=== PATIENT | female | born 1945 | race Caucasian/White ===

== ENCOUNTER 2018-05-31 00:33 | Emergency (ER) | payer OTHER ==
[~2018-05-31] VITALS: Ht 165.1 cm; Wt 75.8 kg
[~2018-05-31 00:33] MED LIST: ALBUTEROL INHAL17 GM IH; ASPIRIN PO; ASPIRIN81 M2 PO; CHLORTHALIDONE25 MG PO; GLIPIZIDE ER2.5 MG PO; JANUMET 50-1,01 EACH PO; KAZANO 12.5-501 EACH PO; KLOR-CON 10 ER10 MEQ PO; LANOXIN 0.250.25 M1 PO; ONDANSETRON HCL4 M2 PO; PEPCID AC20 M1 PO; PRIMADONE; PRIMIDONE50 MG PO; TRAMADOL 50 MG50 MG PO; ZOLOFT PO; ZOLOFT25 MG PO; ZYRTEC10 MG PO
[2018-05-31] MEDS ORDERED: SINEMET 10-1001 EAC1 PO (00:47)
[2018-05-31 01:47] VITALS: BP 152/65
== END 2018-05-31 02:02 | disposition home or self-care (01) ==
LOC: ER 00:33
DX: S09.90XA Unspecified injury of head, initial encounter (principal); J45.909 Unspecified asthma, uncomplicated; E11.9 Type 2 diabetes mellitus without complications; Z85.828 Personal history of other malignant neoplasm of skin; W22.8XXA Striking against or struck by other objects, initial encounter; Y93.89 Activity, other specified; Y92.89 Other specified places as the place of occurrence of the external cause; Y99.8 Other external cause status

== ENCOUNTER → 2018-11-02 | Outpatient (CLI) | payer OTHER ==
[~2018-11-02] MED LIST changes: +SINEMET 10-1001 EAC1 PO
== END ==
LOC: MRI 13:56
DX: M47.813 Spondylosis without myelopathy or radiculopathy, cervicothoracic region (principal); I67.82 Cerebral ischemia; M41.84 Other forms of scoliosis, thoracic region; G31.9 Degenerative disease of nervous system, unspecified; M51.24 Other intervertebral disc displacement, thoracic region; R26.9 Unspecified abnormalities of gait and mobility; W19.XXXA Unspecified fall, initial encounter; Y93.89 Activity, other specified; Y92.89 Other specified places as the place of occurrence of the external cause; Y99.8 Other external cause status

== ENCOUNTER 2019-07-12 21:53 | Emergency (ER) | payer OTHER ==
[~2019-07-12] VITALS: Ht 165.1 cm; Wt 74.4 kg
[2019-07-13] MEDS ORDERED: NORCO 5-325 TA1 EAC1 PO (02:40)
[2019-07-13 02:56] VITALS: BP 133/62
--- NOTE | 2019-07-13 15:12 | EKG ---
[address] [address] ELECTROCARDIOGRAM REPORT Name: JUAN CRUZ Room #: DEP [facility]#: [id number] Admission: 07/12/19 Attend Phys: Discharge: 07/13/19 Date of : 45 Report #: [id number] THIS REPORT FOR: //name// [facility] ED Test Date: 2019-07-12 Test Time: 22:06:38 Pat Name: JUAN CRUZ Department: Room: Gender: F [employer] Operator: QIANA : 1945 Requested By: Janeth Bhandari Order Number: [id number] MD: Micah Wharton Measurements Intervals [place] Rate: 86 P: 63 IN: 173 QRS: 17 QRSD: 85 T: 47 QT: 376 QTc: 450 Interpretive Statements Sinus rhythm Probable left atrial enlargement Compared to ECG 05/03/2016 15:29:48 Ventricular premature complex(es) no longer present Electronically Signed On 07-13-2019 15:11:45 CDT by Micah Wharton [email or web address] <ELECTRONICALLY SIGNED> By: Micah Wharton MD 07/13/19 1511 05 05 Micah Wharton MD /DORCAS
== END 2019-07-13 03:00 | disposition home or self-care (01) ==
LOC: ER 21:53
DX: S16.1XXA Strain of muscle, fascia and tendon at neck level, initial encounter (principal); S20.212A Contusion of left front wall of thorax, initial encounter; E11.9 Type 2 diabetes mellitus without complications; M43.26 Fusion of spine, lumbar region; Z98.890 Other specified postprocedural states; Z87.442 Personal history of urinary calculi; Z85.828 Personal history of other malignant neoplasm of skin; W18.39XA Other fall on same level, initial encounter; Y92.89 Other specified places as the place of occurrence of the external cause; Y93.89 Activity, other specified; Y99.0 Civilian activity done for income or pay

== ENCOUNTER → 2019-08-02 | Outpatient (CLI) | payer OTHER ==
[~2019-08-02] MED LIST changes: +NORCO 5-325 TA1 EAC1 PO
== END ==
LOC: RAD 01:37
DX: Z12.31 Encounter for screening mammogram for malignant neoplasm of breast (principal)

== ENCOUNTER 2020-04-08 20:22 | Emergency (ER) | payer OTHER ==
[~2020-04-08] VITALS: Ht 165.1 cm; Wt 68.0 kg
[2020-04-08 23:01] VITALS: BP 142/88
== END 2020-04-08 23:05 | disposition home or self-care (01) ==
LOC: ER 20:22
DX: S00.12XA Contusion of left eyelid and periocular area, initial encounter (principal); S00.03XA Contusion of scalp, initial encounter; S80.212A Abrasion, left knee, initial encounter; G20 Parkinson's disease; J45.909 Unspecified asthma, uncomplicated; E11.9 Type 2 diabetes mellitus without complications; Z98.890 Other specified postprocedural states; Z87.442 Personal history of urinary calculi; Z79.899 Other long term (current) drug therapy; Z79.82 Long term (current) use of aspirin; W01.198A Fall on same level from slipping, tripping and stumbling with subsequent striking against other object, initial encounter; Y93.89 Activity, other specified; Y92.89 Other specified places as the place of occurrence of the external cause; Y99.8 Other external cause status

== ENCOUNTER → 2020-08-18 | Outpatient (CLI) | payer OTHER | LOC: RAD 13:45 | PROVIDERS: ATTEND Family Medicine | DX: Z12.31 Encounter for screening mammogram for malignant neoplasm of breast (principal) ==

== ENCOUNTER → 2021-06-23 | Outpatient (CLI) | payer OTHER | LOC: MRI 06-09 13:47 | PROVIDERS: ATTEND Family Medicine | DX: M47.816 Spondylosis without myelopathy or radiculopathy, lumbar region (principal); K80.20 Calculus of gallbladder without cholecystitis without obstruction; M54.42 Lumbago with sciatica, left side; M48.061 Spinal stenosis, lumbar region without neurogenic claudication ==

== ENCOUNTER → 2021-10-05 | Outpatient (CLI) | payer OTHER | LOC: BC 10-02 15:47 | PROVIDERS: ATTEND Family Medicine | DX: Z12.31 Encounter for screening mammogram for malignant neoplasm of breast (principal); N64.89 Other specified disorders of breast ==

== ENCOUNTER → 2021-11-12 | Outpatient (CLI) | payer OTHER | LOC: ULTRA 11-05 10:44 | PROVIDERS: ATTEND Family Medicine | DX: M81.0 Age-related osteoporosis without current pathological fracture (principal); N63.20 Unspecified lump in the left breast, unspecified quadrant; D17.1 Benign lipomatous neoplasm of skin and subcutaneous tissue of trunk ==